=== PATIENT | female | born 1995 | race Caucasian/White ===

== ENCOUNTER 2021-08-01 08:28 | Emergency (ER) | payer MEDICAID, SELFPAY ==
[2021-08-01 08:35] VITALS: BP 116/61; PULSE 62; RESP 18; TEMP 36.9; O2SAT 99; BMI 39.1
--- NOTE | 2021-08-01 09:05 | W.ED.ABDPA2 ---
HPI - Abdominal Pain General: Chief Complaint: Abdominal Pain Stated Complaint: abd pains n/v Time Seen by Provider: 08/01/21 08:29 History of Present Illness: HPI narrative: 26-year-old female presents emergency room complaining of abdominal pain. Abdominal pain is relieved by eating worsened by fasting. She has had some vomiting with that no hematochezia melena hematemesis or coffee-ground emesis no no hematochezia. She not really taking anything for it at this point. She focuses most of her pain to the periumbilical area. She denies any upper respiratory symptoms. MD elicited complaint: abdominal pain Onset (ago): day(s) (6) Pain Consistency: constant Location: Periumbilical Severity: moderate Quality: cramping Radiation: none Migration to: no migration Exacerbating factors: eating Relieving factors: nothing Associated Symptoms: Reports vomiting; Denies anorexia, belching, bloating, change in bowel habits, change in stool character, chills, coffee ground emesis, constipation, GI cramping, diarrhea, dyspepsia, dysuria, excessive flatus, fever(s), heartburn, hematochezia, hematuria, hematemesis, fecal incontinence, loose stools, melena, nausea, poor appetite and syncope Review of Systems Const: Denies: fever(s) or chills ENMT: Denies: throat pain, ear or mastoid pain, nasal discharge or nasal congestion Card: Denies: syncope Resp: Denies: dyspnea, productive cough or non-productive cough GI: Reports: vomiting; Denies: nausea, hematemesis, coffee ground emesis, heartburn, diarrhea, constipation, bloating, GI cramping, belching, excessive flatus, fecal incontinence, change in bowel habits, change in stool character, hematochezia or melena : Denies: dysuria or hematuria Skin/Breast: Denies: rash or pruritus Physical Exam Const: COMMON NORMALS: no acute distress GENERAL APPEARANCE: cooperative and comfortable ORIENTATION/CONSCIOUSNESS: Yes awake, Yes oriented to person, Yes oriented to place and Yes oriented to time HENMT: COMMON NORMALS: normocephalic, atraumatic and hearing grossly normal bilaterally HEAD & SCALP: normocephalic and atraumatic Neck/C-Spine: COMMON NORMALS: no JVD Resp: COMMON NORMALS: normal respiratory effort, No retractions, No use of accessory muscles and clear to auscultation bilaterally AUSCULTATION: clear to auscultation bilaterally Cardio: COMMON NORMALS: no JVD, regular rate, regular rhythm and No murmurs present (Cardio) RATE: regular rate RHYTHM: regular rhythm GI: COMMON NORMALS: Soft to palpation and No hepatosplenomegaly present AUSCULTATION: Yes normoactive bowel sounds PALPATION: Yes Soft to palpation, No Tenderness to palpation present (GI), No Guarding due to palpation present (GI) and Yes No hepatosplenomegaly present Extremity: COMMON NORMALS: normal to inspection, capillary refill normal, no clubbing, cyanosis or edema, no calf tenderness and no pedal edema Neuro: SENSORIUM/ORIENTATION: Yes oriented to person, Yes oriented to place and Yes oriented to time Skin: COMMON NORMALS: no rashes or lesions noted GENERAL SKIN EXAM: no rashes or lesions noted Course Vital Signs: Vital signs: Vital Signs Temperature 98.3 F 08/01/21 11:38 Pulse Rate 58 L 08/01/21 11:38 Respiratory Rate 19 H 08/01/21 11:38 Blood Pressure 140/58 08/01/21 11:38 Pulse Oximetry 100 08/01/21 11:38 MDM - Abdominal Pain MDM Narrative: Medical decision making narrative: Reviewed labs as on the chart. Patient is currently . Will start on amoxicillin Flagyl and close Romycin as well as omeprazole due to the severity of her symptoms. And she is having H. pylori a that is exacerbated by her state. Gave her promethazine to use as needed clear liquid diet and advance as tolerated case management get her set up for obstetrical care. If she has worsening problems return. Lab Data: Labs: Lab Results 08/01/21 08/01/21 08/01/21 09:13 09:13 09:13 WBC 9.3 10^3/uL 10^3/ uL (4.0-10.0) RBC 4.66 10^6/uL 10^6 /uL (4.1-5.3) Hgb 13.6 g/dL g/dL (11.5-15.3) Hct 41.5 % % (37.0-47.0) MCV 89.1 fl fl (81-99) MCH 29.2 pg pg (28.0-34.0) MCHC 32.8 g/dL g/dL (30.0-36.0) RDW 13.0 % % (12.1-15.1) Plt Count 270 10^3/cmm 10^3 /cmm (130-400) MPV 11.2 fL H fL (7.4-10.4) Neut % (Auto) 64.9 % % Lymph % (Auto) 25.4 % % [place] % (Auto) 5.9 % % Eos % (Auto) 3.0 % % Baso % (Auto) 0.5 % % Neut # (Auto) 6.00 10^3/uL 10^3 /uL (1.8-7.7) Lymph # (Auto) 2.4 10^3/uL 10^3/ uL (0.8-4.8) [place] # (Auto) 0.6 10^3/uL 10^3/ uL (0.2-0.9) Eos # (Auto) 0.3 10^3/uL 10^3/ uL (0.0-0.8) Baso # (Auto) 0.1 10^3/uL 10^3/ uL (0.0-0.1) Nucleated RBC % (a uto) 0 % % Nucleated RBCs # 0.0 /100WBC /100W BC Sodium 138 mmol/L mmol/L (136-145) Potassium 3.7 mmol/L mmol/L (3.5-5.1) Chloride 106 mmol/L mmol/L (98-107) Carbon Dioxide 22 mmol/L mmol/L (22-29) Anion Gap 13.7 (5-19) BUN 4 mg/dL L mg/dL (6-20) Creatinine 0.4 mg/dL L mg/dL (0.5-0.9) GFR Calculation 194.5 mL/min H mL /min (90-130) Glucose 97 mg/dL mg/dL (65-115) Calculated Osmolal ity 283 mOsm/kg L mOs m/kg (285-295) Calcium 9.1 mg/dL mg/dL (8.5-10.5) Total Bilirubin 1.2 mg/dL mg/dL (0.15-1.2) AST 18 U/L U/L (0-32) ALT 21 U/L U/L (0-33) Alkaline Phosphata se 70 IU/L IU/L (35-105) Total Protein 7.1 g/dL g/dL (6.6-8.7) Albumin 4.2 g/dL g/dL (3.5-5.2) Globulin 2.9 g/dL g/dL (1.3-4.6) Lipase 14 U/L U/L (13-60) HCG, Qual Positive H (Negative) Urine Color Urine Appearance Urine pH Ur Specific Gravit y Urine Protein Urine Glucose (UA) Urine Ketones Urine Blood Urine Nitrate Urine Bilirubin Urine Urobilinogen Ur Leukocyte Lizy ase Urine RBC Urine WBC Ur Squamous Epith Cells Amorphous Sediment Urine Bacteria Urine Mucus H. pylori IgG Anti body 08/01/21 08/01/21 09:13 09:13 WBC RBC Hgb Hct MCV MCH MCHC RDW Plt Count MPV Neut % (Auto) Lymph % (Auto) [place] % (Auto) Eos % (Auto) Baso % (Auto) Neut # (Auto) Lymph # (Auto) [place] # (Auto) Eos # (Auto) Baso # (Auto) Nucleated RBC % (a uto) Nucleated RBCs # Sodium Potassium Chloride Carbon Dioxide Anion Gap BUN Creatinine GFR Calculation Glucose Calculated Osmolal ity Calcium Total Bilirubin AST ALT Alkaline Phosphata se Total Protein Albumin Globulin Lipase HCG, Qual Urine Color Dark yellow (Yellow) Urine Appearance Cloudy (CLEAR) Urine pH 7 (5-7) Ur Specific Gravit y 1.015 (1.005-1.030) Urine Protein Neg (Negative) Urine Glucose (UA) Norm (Normal) Urine Ketones 1+ H (Negative) Urine Blood Neg (Negative) Urine Nitrate Negative (Negative) Urine Bilirubin 1+ H (Negative) Urine Urobilinogen 8 mg/dL H mg/dL (Negative) Ur Leukocyte Lizy ase Negative (Negative) Urine RBC None /hpf /hpf (0-2) Urine WBC 0-4 /hpf H /hpf (0-5) Ur Squamous Epith Cells 5-10 /hpf H /hpf (0-5) Amorphous Sediment Not Reportable Urine Bacteria Trace /hpf /hpf (NONE) Urine Mucus 3+ /hpf /hpf H. pylori IgG Anti body Positive H (Negative) Discharge Plan Discharge Patient Disposition: Home Clinical Impression: H. pylori infection, Condition: Stable Prescriptions: New amoxicillin 500 mg capsule 1,000 mg PO BID 14 Days Qty: 56 RF: 0 Flagyl 500 mg tablet 500 mg PO Q8H 14 Days Qty: 42 RF: 0 clarithromycin 500 mg tablet 500 mg PO BID 14 Days Qty: 28 RF: 0 omeprazole 20 mg capsule,delayed release(DR/EC) 20 mg PO DAILY 84 Days RF: 0 PNV,calcium 72-iron,carb-folic 29 mg iron- 1 mg tablet 1 tab PO DAILY Qty: 90 RF: 0 promethazine 25 mg tablet 25 mg PO Q6H PRN (Reason: nausea and vomiting) Qty: 30 RF: 0 Discharge Orders: Discharge ED (Routine); Ordered 08/01/21 Ordered By: Earl Rivers Referrals: Ildefonso Cueto Jr, MD [Primary Care Provider] - Discharge Diet: Usual diet Patient Instructions: Opioid Safety Activity Restrictions/Additional Instructions: Case management will assist in getting established with a bobbin fixer for your . Coding Level of Care Code ED Drug And Alcohol Counselor for Chg Fwd Exam Comprehensive
[2021-08-01] MEDS: sodium chloride 0.9% 1,000 ML 999 ML IV (09:12)
[2021-08-01] MEDS: promethazine 25 mg/mL SDV 1 mL IM ×2 (09:12→09:25)
[2021-08-01 09:18] LABS: Basophils # 0.1 10^3/uL (0.0-0.1); Basophils % 0.5 %; Eosinophils # 0.3 10^3/uL (0.0-0.8); Hematocrit 41.5 % (37.0-47.0); Hemoglobin 13.6 g/dL (11.5-15.3); Lymphocytes # 2.4 10^3/uL (0.8-4.8); Lymphocytes % 25.4 %; Mean Corpuscular HGB Conc 32.8 g/dL (30.0-36.0); Mean Corpuscular Hemoglobin 29.2 pg (28.0-34.0); Mean Corpuscular Volume 89.1 fl (81-99); Mean Platelet Volume 11.2 fL (7.4-10.4); Monocytes # 0.6 10^3/uL (0.2-0.9); Monocytes % 5.9 %; Neutrophils % 64.9 %; Nucleated Red Blood Cells % 0 %; Platelet Count 270 10^3/cmm (130-400); Red Blood Count 4.66 10^6/uL (4.1-5.3); White Blood Count 9.3 10^3/uL (4.0-10.0)
[2021-08-01 09:33] LABS: HCG, Serum Qual Positive (Negative)
[2021-08-01 09:40] LABS: Alanine Aminotransferase 21 U/L (0-33); Albumin Level 4.2 g/dL (3.5-5.2); Alkaline Phosphatase 70 IU/L (35-105); Anion Gap 13.7 (5-19); Aspartate Amino Transferase 18 U/L (0-32); Blood Urea Nitrogen 4 mg/dL (6-20); Calcium 9.1 mg/dL (8.5-10.5); Carbon Dioxide 22 mmol/L (22-29); Chloride 106 mmol/L (98-107); Globulin 2.9 g/dL (1.3-4.6); Glomerular Filtration Rate 194.5 mL/min (90-130); Glucose 97 mg/dL (65-115); Lipase 14 U/L (13-60); Osmolality Calculated 283 mOsm/kg (285-295); Potassium 3.7 mmol/L (3.5-5.1); Sodium 138 mmol/L (136-145); Total Bilirubin 1.2 mg/dL (0.15-1.2); Total Protein 7.1 g/dL (6.6-8.7)
[2021-08-01 09:43] LABS: H. Pylori IgG Antibody Positive (Negative)
[2021-08-01 10:17] LABS: Add Urine Microscopic? YES; Bilirubin Urine 1+ (Negative); Blood Urine Neg (Negative); Glucose Urine UA Norm (Normal); Ketones Urine 1+ (Negative); Leukocyte Esterase Urine Negative (Negative); Nitrate Urine Negative (Negative); Protein Urine Neg (Negative); Specific Gravity, Urine 1.015 (1.005-1.030); Urine Appearance Cloudy (CLEAR); Urine Color Dark Yellow (Yellow); Urobilinogen Urine 8 mg/dL (Negative); pH Urine 7 (5-7)
[2021-08-01 10:18] VITALS: BP 117/57; PULSE 52; RESP 18; O2SAT 100
[2021-08-01 10:28] LABS: Bacteria Urine TRACE /hpf; Mucus Urine 3+ /hpf; WBC Urine 0-4 /hpf (0-5)
[2021-08-01 10:29] LABS: Add Urine Culture? No
[2021-08-01] MEDS: pantoprazole 40 mg SDV 80 MG IVP (10:33)
[2021-08-01 11:38] VITALS: BP 140/58; PULSE 58; RESP 19; TEMP 36.8; O2SAT 100
--- NOTE | 2021-08-02 14:58 | DCPLANNER ---
[employer] had a message to schedule a follow up appointment for patient with [facility]. [employer] called [facility] gave clinic patients information. [employer] was told that patients information would be printed and reviewed. Clinic will call patient with appointment information.
--- NOTE | 2021-08-03 15:56 | DCPLANNER ---
Addendum entered by Marj Jewell 11/29/21 18:07: Patient had a follow up appointment scheduled with [facility] - patient did attend appointment. Original Note: Patient has a follow up appointment scheduled for Saturday, July at 9:30 with Carla Ham at [facility]. Clinic will patient with appointment information.
== END 2021-08-01 11:41 | disposition home or self-care (01) ==
PROVIDERS: Physician Assistant; Emergency Provider Family Medicine; PCP Pediatrics Adolescent Medicine
DX: O98.819 Other maternal infectious and parasitic diseases complicating pregnancy, unspecified trimester (principal); A04.8 Other specified bacterial intestinal infections; Z3A.00 Weeks of gestation of pregnancy not specified
CPT/HCPCS: 80053; 81001; 83690; 84703; 85025; 86677; 87040; 96361; 96372; 96374; 99283; C9113; J2550; J7030

== ENCOUNTER → 2021-08-16 13:33 | Outpatient (BNVA) | payer MEDICAID, SELFPAY | PROVIDERS: PCP Pediatrics Adolescent Medicine; Visit Provider Nurse Practitioner Women's Health | DX: N92.6 Irregular menstruation, unspecified (principal) | CPT/HCPCS: 81025; 84443; 84702 ==

== ENCOUNTER → 2021-08-24 09:31 | Outpatient (BNVA) | payer MEDICAID, SELFPAY | PROVIDERS: PCP Pediatrics Adolescent Medicine; Visit Provider Obstetrics & Gynecology | DX: Z34.90 Encounter for supervision of normal pregnancy, unspecified, unspecified trimester (principal); Z3A.10 10 weeks gestation of pregnancy | CPT/HCPCS: 76817 ==

== ENCOUNTER → 2021-09-06 08:47 | Outpatient (BNVA) | payer SELFPAY | PROVIDERS: Visit Provider Obstetrics & Gynecology | DX: Z34.80 Encounter for supervision of other normal pregnancy, unspecified trimester (principal) | CPT/HCPCS: 81000 ==

== ENCOUNTER → 2021-09-11 16:36 | Outpatient (BNVA) | payer MEDICAID, SELFPAY | PROVIDERS: Visit Provider Obstetrics & Gynecology | DX: O99.210 Obesity complicating pregnancy, unspecified trimester (principal); Z12.4 Encounter for screening for malignant neoplasm of cervix; O99.320 Drug use complicating pregnancy, unspecified trimester; O99.330 Smoking (tobacco) complicating pregnancy, unspecified trimester | CPT/HCPCS: 80307; 80500; 81000; 82950; 84443; 85027; 86592; 86762; 86803; 86850; 86870; 86900; 87086; 87340; 87491; 87591; 87806; 88175 ==

== ENCOUNTER → 2021-09-20 12:00 | Outpatient (BNVA) | payer MEDICAID, SELFPAY | PROVIDERS: Visit Provider Obstetrics & Gynecology | DX: O99.210 Obesity complicating pregnancy, unspecified trimester (principal); Z12.4 Encounter for screening for malignant neoplasm of cervix; O99.320 Drug use complicating pregnancy, unspecified trimester; O99.330 Smoking (tobacco) complicating pregnancy, unspecified trimester | CPT/HCPCS: 86886 ==

== ENCOUNTER → 2021-11-01 08:58 | Outpatient (BNVA) | payer BC, SELFPAY | PROVIDERS: Visit Provider Obstetrics & Gynecology | DX: Z34.82 Encounter for supervision of other normal pregnancy, second trimester (principal) | CPT/HCPCS: 76805 ==

== ENCOUNTER → 2021-11-08 13:58 | Outpatient (BNVA) | payer BC, SELFPAY | PROVIDERS: Visit Provider Obstetrics & Gynecology | DX: O99.320 Drug use complicating pregnancy, unspecified trimester (principal) | CPT/HCPCS: 80307; 81000; 86850; 86870; 86886 ==

== ENCOUNTER → 2021-12-05 09:36 | Outpatient (BNVA) | payer BC, SELFPAY | PROVIDERS: Visit Provider Nurse Practitioner Women's Health | DX: Z34.90 Encounter for supervision of normal pregnancy, unspecified, unspecified trimester (principal); O36.1190 Maternal care for Anti-A sensitization, unspecified trimester, not applicable or unspecified | CPT/HCPCS: 81000; 86886 ==

== ENCOUNTER → 2021-12-27 08:27 | Outpatient (BNVA) | payer BC, SELFPAY | PROVIDERS: Visit Provider Obstetrics & Gynecology | DX: O09.90 Supervision of high risk pregnancy, unspecified, unspecified trimester (principal); O36.1190 Maternal care for Anti-A sensitization, unspecified trimester, not applicable or unspecified | CPT/HCPCS: 81000; 82950; 85027; 86886 ==

== ENCOUNTER → 2022-01-02 09:59 | Outpatient (BNVA) | payer BC, SELFPAY | PROVIDERS: Visit Provider Obstetrics & Gynecology | DX: O09.90 Supervision of high risk pregnancy, unspecified, unspecified trimester (principal) | CPT/HCPCS: 80307; 81000 ==

== ENCOUNTER 2022-01-30 12:30 | Outpatient (CLI) | payer BC, MEDICAID, SELFPAY ==
[2022-01-30] MEDS: betamethasone susp 6 mg/mL 5 mL 12 MG IM (12:49)
== END 2022-01-30 12:51 | disposition home or self-care (01) ==
LOC: OPOB 12:36 → OBGYN 12:37
PROVIDERS: Visit Provider Obstetrics & Gynecology
DX: O26.899 Other specified pregnancy related conditions, unspecified trimester (principal); Z3A.00 Weeks of gestation of pregnancy not specified
CPT/HCPCS: 96372; J0702

== ENCOUNTER → 2022-03-12 16:01 | Outpatient (BNVA) | payer BC, MEDICAID, SELFPAY | PROVIDERS: Visit Provider Obstetrics & Gynecology | DX: Z30.9 Encounter for contraceptive management, unspecified (principal); N83.209 Unspecified ovarian cyst, unspecified side; Z39.2 Encounter for routine postpartum follow-up | CPT/HCPCS: 84702 ==

== ENCOUNTER 2022-04-26 09:05 | Outpatient (CLI) | payer BC, MEDICAID, SELFPAY ==
--- NOTE | 2022-04-26 09:15 | US_ITS ---
WS: [id number] TRANSABDOMINAL PELVIC AND TRANSVAGINAL PELVIC ULTRASOUND HISTORY: N83.209 - Unspecified ovarian cyst, unspecified side COMPARISON: None available. Uterus: 6.4 cm x 5.5 cm x 3.9 cm. Anteverted uterus. No fibroid. Endometrium: 0.3 cm. IUD is noted along the endometrial canal. The very distal IUD does extend to the endocervical segment. Tip of the IUD is greater than 7 mm from the fundal portion of the endometrium . Right ovary: 3.1 cm x 2.3 cm x 3.9 cm. Multiple small peripheral cysts. No solid mass. Left ovary: 2.2 cm x 0.7 cm x 2.1 cm. Poorly visualized ovary. No free fluid. US/US pelvic with transvaginal IMPRESSION: 1. Multiple small peripheral follicles within the RIGHT ovary. No solid mass o r cystic mass. 2 IUD extends into the endocervical segment and is greater than 7 mm from the f undal portion of the endometrium.
== END 2022-04-26 09:06 | disposition home or self-care (01) ==
LOC: RAD 09:06
PROVIDERS: Visit Provider Obstetrics & Gynecology
DX: N83.209 Unspecified ovarian cyst, unspecified side (principal)
CPT/HCPCS: 76830; 76856

== ENCOUNTER 2022-05-28 08:21 | Outpatient (CLI) | payer BC, MEDICAID, SELFPAY ==
--- NOTE | 2022-05-28 08:30 | US_ITS ---
WS: [id number] TRANSABDOMINAL PELVIC AND TRANSVAGINAL PELVIC ULTRASOUND HISTORY: IUD evaluation. COMPARISON: 04/26/2022 Uterus: 8.1 cm x 5.4 cm x 3.2 cm. Normal size anteverted uterus. No fibroid or mass. Endometrium: 0.4 cm. Reevaluation of the IUD. The IUD extends to the endocervical junction. There is approximately 8 mm between the uterine fundus and the IUD. Very similar appearance in position as the prior study with no change. Right ovary: 3.4 cm x 1.4 cm x 2.0 cm. Normal size and echogenicity and vascularity. Left ovary: 1.5 cm x 1.1 cm x 1.0 cm. Normal size, echogenicity and vascularity. No free fluid. US/US pelvic with transvaginal IMPRESSION: 1. IUD is inferiorly positioned with respect to the endometrium distance to th e fundus. Distance from the distal tip of the IUD to the uterine fundus is 8 mm . With the distance being greater than 4 mm there is an increased risk for blee ding and expulsion of the IUD. Also, a low positioned IUD can migrate into a no rmal position. No change in the IUD since 04/26/2022. 2. No free fluid.
== END 2022-05-28 08:22 | disposition home or self-care (01) ==
LOC: RAD 08:22
PROVIDERS: Visit Provider Obstetrics & Gynecology
DX: Z30.431 Encounter for routine checking of intrauterine contraceptive device (principal)
CPT/HCPCS: 76830; 76856

== ENCOUNTER → 2022-06-05 00:01 | Outpatient (BNVA) | payer BC, MEDICAID, SELFPAY | PROVIDERS: Visit Provider Obstetrics & Gynecology | DX: Z30.431 Encounter for routine checking of intrauterine contraceptive device (principal) | CPT/HCPCS: 76857 ==

== ENCOUNTER 2024-10-11 04:11 | Inpatient (IN) | payer BC, MEDICAID, SELFPAY ==
[2024-10-11] VITALS (7 sets, daily range): BP systolic 114–152; BP diastolic 72–89; PULSE 69–90; RESP 16–18; TEMP 36.6–37.3; O2SAT 97–100; BMI 31.4
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
--- NOTE | 2024-10-11 04:51 | PC.NURSE ---
96 Hour Involuntary Hold Patient Rights have been read to the patient and a copy of the same has been given to her. Wind Technician Salbador Talavera was present at the bedside at the time of presentation of Rights.
[2024-10-11 05:07] LABS: Basophils # 0.1 10^3/uL (0.0-0.1); Basophils % 0.8 %; Eosinophils # 0.4 10^3/uL (0.0-0.8); Eosinophils % 2.7 %; Hematocrit 41.3 % (36-47); Lymphocytes # 2.4 10^3/uL (0.8-4.8); Lymphocytes % 16.1 %; Mean Corpuscular HGB Conc 32.2 g/dL (30-55); Mean Corpuscular Hemoglobin 29.9 pg (27-33); Mean Corpuscular Volume 92.8 fl (85-98); Mean Platelet Volume 9.9 fL (7.4-10.4); Monocytes # 0.7 10^3/uL (0.2-0.9); Monocytes % 4.8 %; Neutrophils # 10.93 10^3/uL (1.8-7.7); Neutrophils % 74.4 %; Nucleated Red Blood Cells % 0 %; Platelet Count 284 10^3/cmm (157-399); Red Blood Count 4.45 10^6/uL (3.85-5.65); Red Cell Distribution Width 12.7 % (12.1-15.1)
[2024-10-11 05:10] LABS: Bilirubin Urine Negative (Negative); Blood Urine Negative (Negative); Glucose Urine UA Negative (Normal); HCG Qualitative Urine. Negative (Negative); Ketones Urine Negative (Negative); Leukocyte Esterase Urine Negative (Negative); Nitrate Urine Negative (Negative); Protein Urine Trace (Negative); Urine Appearance Clear (CLEAR); Urine Color Yellow (Yellow); Urobilinogen Urine 0.2 mg/dL (Negative); pH Urine 5.5 (5-7)
[2024-10-11 05:15] LABS: Add Urine Microscopic? YES; Bacteria Urine None Seen /hpf; Hyaline Casts Urine 13.22 /lpf; RBC Urine 0-2 /hpf (0-2); Squamous Epithelial Cell Urine 0-5 /hpf (0-5); Universal Test for UA Present (0); WBC Urine 0-5 /hpf (0-5)
[2024-10-11 05:18] LABS: Amphetamines Screen Urine Negative (Negative); Barbiturates Screen Urine Negative (Negative); Benzodiazepines Screen Urine Negative (Negative); Cocaine Screen Urine Negative (Negative); Opiate Screen Urine Negative (Negative); PCP Screen Urine Negative (Negative); THC Screen Urine Positive (Negative)
[2024-10-11 05:32] LABS: Alanine Aminotransferase 25 U/L (0-33); Albumin Level 4.2 g/dL (3.5-5.2); Alcohol Level 190 mg/dL (0-10); Alkaline Phosphatase 84 U/L (35-105); Anion Gap 17.5 (5-19); Aspartate Amino Transferase 28 U/L (0-32); Blood Urea Nitrogen 9 mg/dL (6-20); Calcium 8.6 mg/dL (8.5-10.5); Carbon Dioxide 23 mmol/L (22-29); Chloride 108 mmol/L (98-107); Creatinine Clr Calc Pharmacy 194.1784; Glomerular Filtration Rate 146.9 mL/min (90-130); Glucose 89 mg/dL (65-115); Osmolality Calculated 298 mOsm/kg (285-295); Potassium 3.5 mmol/L (3.5-5.1); Sodium 145 mmol/L (136-145); Total Bilirubin 0.2 mg/dL (0.15-1.2); Total Protein 7.2 g/dL (6.6-8.7)
[2024-10-11 05:46] LABS: Acetaminophen < 5.0 ug/mL (10-30); Salicylate < 0.3 mg/dL (3-10)
--- NOTE | 2024-10-11 07:43 | PC.NURSE ---
report called to KENNETH Johnson in [facility].
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
[2024-10-12 04:00] VITALS: BP 123/84; PULSE 66; RESP 16; TEMP 36.9; O2SAT 98
[2024-10-12 08:00] VITALS: BP 143/94; PULSE 65; RESP 16; O2SAT 97
[2024-10-12] MEDS: fluoxetine 20 mg Capsule 80 MG PO (08:21)
--- NOTE | 2024-10-12 11:15 | P.NPUPN_ITS ---
Subjective NPU 2 Subjective: Patient presented today reporting that she is doing okay. We had a long discussion about reading her affidavits and identifying that the conflict that she identified with her and sister seem to be a bit more significant than she alluded to. We discussed wanting to make sure that we had a clear understanding of the situation with her getting collateral information there and possibly with her sister or mom. We discussed concerns about the drinking and figuring out how to work on how to eliminate that aspect of her situation she was somewhat downplaying her addiction and suggesting that just saying she is done with drinking will be the end of this aspect. She is on a 96-hour hold and we discussed evaluating her safety related to that hold. Mental Status Exam 2 MSE Comments: This is an obese mixed female in hospital scrubs with adequate grooming and limited eye contact. No abnormal movements except for mild psychomotor retardation. Cooperative with exam in mild distress. Speech was slightly decreased rate and volume. Mood described as a little depressed, affect congruent. Thought process linear. Thought content: Patient denied suicidal or homicidal ideation, there were no delusions reported noted, she denied any auditory or visual hallucinations. The patient reported having anxiety and depression. Her anxiety is characterized by constant worrying and intrusive thoughts, but no physical manifestations. Her depression was triggered by relationship struggles with her and has led to feelings of helplessness, hopelessness, and worthlessness. It also disrupts her sleep. She has had thoughts of suicide but has never planned it. She reported no paranoia, hallucinations, or obsessive behaviors. She has had nightmares and flashbacks related to her childhood trauma but not recently. She described her current mood as sad and embarrassed due to the incident that led to her hospitalization. Attention and concentration were intact and memory appeared somewhat reliable but none were formally tested. She is alert and oriented x3. Insight and judgment limited impulse control limited versus impaired. Vitals/I&O/Wt Last Vital Signs Temp 98.5 F 10/12/24 04:00 Pulse 65 10/12/24 08:00 Resp 16 10/12/24 08:00 BP 143/94 10/12/24 08:00 Pulse Ox 97 10/12/24 08:00 O2 Del Method Room Air 10/11/24 15:59 Weight last 48 hrs Weight 91.172 kg Data NPU 10/11/24 05:00 10/11/24 05:00 A&P Assessment and plan (1) Major depressive disorder, recurrent, moderate: (2) Cannabis use disorder, moderate, dependence: (3) Trauma and stressor-related disorder: (4) Suicidal ideation: (5) Nicotine dependence, cigarettes, uncomplicated: (6) Marital/partner relational problem: (7) Sibling relational problem: (8) Alcohol use disorder, moderate, dependence: Plan This is a 29-year-old white female known from past encounters with a more recent history of mental health challenges and increased alcohol consumption. The patient is experiencing anxiety and depressive disorders, which seem to be exacerbated by her alcohol use disorder and interpersonal relationship difficulties. She has a history of childhood trauma, which may be contributing to her psychiatric conditions. She has been on pharmacotherapy for her psychiatric conditions for about six months and has been engaged in outpatient psychiatric care. However, her recent escalation in alcohol consumption and the incident that led to her hospitalization indicate that her current treatment regimen may not be adequately addressing her therapeutic needs. 1. Continue current medication. 2. Continue every 15 minute checks for safety 3. Encourage individual, group and milieu therapy. 4. Encourage sober living treatment after discharge at the highest level care to which he is willing to commit. We need to also identify how significant the role of addiction is. 5. Obtain collateral information to determine whether this was just an alcohol related phenomenon or reflection of greater challenges. Patient on a 96-hour hold we will evaluate for the reasonableness of discharge. Involuntary Hold Information 2 96 Hour Hold: 96 Hour Involuntary Admission: Yes 96 Hour Hold Ending Date: 10/16/24 96 Hour Hold Ending Time: 04:30 Other Hold: Hold End Date: 10/16/24 Attestations NPU 2 Medical Necessity Statement*: Inpatient hospitalization is medically necessary and the clinically appropriate intervention at this time. We will monitor/initiate medications and make changes as indicated. Likely length of stay 1-3 days. Coding Level of Care Code Acute Code for [facility] Fwd Diagnoses Major depressive disorder, recurrent, moderate F33.1 Cannabis use disorder, moderate, dependence F12.20 Trauma and stressor-related disorder F43.9 Suicidal ideation R45.851 Nicotine dependence, cigarettes, uncomplicated F17.210 Marital/partner relational problem Z63.0 Sibling relational problem Z63.8 Alcohol use disorder, moderate, dependence F10.20
[2024-10-12 12:00] VITALS: BP 145/107; PULSE 73; RESP 16; O2SAT 96
[2024-10-12 16:00] VITALS: BP 145/89; PULSE 74; RESP 16; O2SAT 98
[2024-10-12 20:14] VITALS: BP 146/77; PULSE 72; RESP 18; TEMP 36.9; O2SAT 99
[2024-10-13] VITALS: BP 149/84; PULSE 69; RESP 16; TEMP 37; O2SAT 99
[2024-10-13 00:14] VITALS: BP 149/84; PULSE 69; RESP 16; TEMP 37; O2SAT 99
[2024-10-13] MEDS: trazodone 50 mg Tablet PO (00:19)
[2024-10-13 06:00] VITALS: BP 123/79; PULSE 64; RESP 12; TEMP 36.7; O2SAT 100
[2024-10-13] MEDS: fluoxetine 20 mg Capsule 80 MG PO (09:14)
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
[2024-10-13 09:46] VITALS: BP 123/79; PULSE 64; RESP 12; TEMP 36.6; O2SAT 100
== END 2024-10-13 12:39 | disposition home or self-care (01) | DRG 885 ==
LOC: ER 06:19 → NP 06:35
PROVIDERS: Admitting Provider Psychiatry & Neurology Psychiatry; Emergency Provider Emergency Medicine; Visit Provider Psychiatry & Neurology Psychiatry
DX: F33.1 Major depressive disorder, recurrent, moderate (principal); R45.851 Suicidal ideations; F12.20 Cannabis dependence, uncomplicated; F43.9 Reaction to severe stress, unspecified; F17.210 Nicotine dependence, cigarettes, uncomplicated; F10.20 Alcohol dependence, uncomplicated; F41.9 Anxiety disorder, unspecified; E66.9 Obesity, unspecified; Z68.31 Body mass index [BMI] 31.0-31.9, adult; Z63.8 Other specified problems related to primary support group; Z63.0 Problems in relationship with spouse or partner
CPT/HCPCS: 80053; 80306; 80307; 81001; 81025; 85025; 97150; 97165; 99285